=== PATIENT | male | born 1995 | race Caucasian/White ===

== ENCOUNTER 2017-03-23 17:02 | Emergency (ER) | payer SELFPAY ==
[2017-03-23 18:45] VITALS: BP 129/87
== END 2017-03-23 18:45 | disposition home or self-care (01) ==
LOC: ED 17:02
DX: S61.213A Laceration without foreign body of left middle finger without damage to nail, initial encounter (principal); Z88.1 Allergy status to other antibiotic agents; W26.8XXA Contact with other sharp object(s), not elsewhere classified, initial encounter; Y93.89 Activity, other specified; Y99.8 Other external cause status; Y92.89 Other specified places as the place of occurrence of the external cause
CPT/HCPCS: 90715; A4570

== ENCOUNTER 2017-04-27 15:11 | Emergency (ER) | payer SELFPAY ==
[~2017-04-27] VITALS: Ht 167.6 cm; Wt 86.2 kg
[2017-04-27 17:16] VITALS: BP 121/71
== END 2017-04-27 17:17 | disposition home or self-care (01) ==
LOC: ED 15:11
DX: B85.3 Phthiriasis (principal); Z88.1 Allergy status to other antibiotic agents